=== PATIENT | female | born 1995 | race Caucasian/White ===

== ENCOUNTER 2016-08-05 10:32 | Emergency (ER) | payer SELFPAY ==
[2016-08-05 10:52] VITALS: BP 136/82
--- NOTE | 2016-08-05 16:07 | Emergency Department Report ---
Chief Complaint: Dyspnea/Respdistress Stated Complaint: PAIN IN BACK/EXSPOSED TO TB Time Seen by Provider: 08/05/16 15:58 - HPI History of Present Illness: 21 year-old -[place] female comes in for concern for exposure to tuberculosis. Patient reports that her is currently in detention and has tested positive for tuberculosis. Patient denies any fever no chills denies any shortness of breath denies any weight loss no cough no coughing up bloody sputum. She has no other concerns. - Exam Vital Signs: Vital Signs 08/05/16 10:43 Temperature 97.8 F Pulse Rate 75 Respiratory 18 Rate Blood Pressure 136/82 O2 Sat by Pulse 100 Oximetry Physical Exam: She is alert and oriented 3. No acute distress. She is in no acute respiratory distress not coughing in the exam room sitting comfortably with the mask on. MSE screening note: Focused history and physical exam performed. Due to findings the following was ordered: She's been evaluated by this provider. Discussed with patient that she needs to go to the health department for evaluation for tuberculosis. That they are the ones that can test her to determine if she is positive or not. Patient verbalized understanding ED Disposition for MSE Condition: Stable Referrals: PRIMARY CARE, [Primary Care Provider] - 3-5 Days
== END 2016-08-05 16:09 | disposition home or self-care (01) ==
LOC: ED 10:32
DX: Z20.1 Contact with and (suspected) exposure to tuberculosis (principal); Z53.21 Procedure and treatment not carried out due to patient leaving prior to being seen by health care provider